=== PATIENT | female | born 1995 | race Asian ===

== ENCOUNTER 2022-07-03 11:23 | Emergency (ER) | payer OTHER ==
[~2022-07-03] VITALS: Ht 160 cm; Wt 47.7 kg
[2022-07-03] MEDS ORDERED: PERTUSS(ACELL),DIPH,TET VAC/PF 0.5 ML SYRINGE IM. ONE (12:15)
[2022-07-03 12:36] VITALS: BP 117/63
== END 2022-07-03 12:50 | disposition home or self-care (01) ==
LOC: EMS 11:28
DX: S61.012A Laceration without foreign body of left thumb without damage to nail, initial encounter (principal); W26.8XXA Contact with other sharp object(s), not elsewhere classified, initial encounter; Y93.89 Activity, other specified; Y92.89 Other specified places as the place of occurrence of the external cause; Y99.8 Other external cause status
CPT/HCPCS: 90471; 90715; 99283